=== PATIENT | female | born 1990 | race Caucasian/White ===

== ENCOUNTER 2019-07-17 00:48 | Inpatient (IN) ==
[2019-07-17 01:25] LABS: Apearance,Urine CLEAR (Clear); Bacteria,Urine Moderate /HPF (Few); Bilirubin,Urine Negative (Negative); Blood, Urine Moderate mg/dL (Negative); Glucose,Urine (UA) Negative (Negative); Ketones,Urine 5 mg/dL (Negative); Mucus,Urine Occasional /LPF (Occasional); Nitrite,Urine Negative (Negative); Protein,Urine Negative; RBC,Urine 3 /HPF (0-4); Squamous Epithelial Cell,Urine Occasional /HPF (0-10); Urine Color Yellow (Yellow); Urine Specific Gravity 1.011 (1.001-1.035); Urine Urobilinogen < 2.0 EU/DL (0.2-1.0); WBC,Urine 5 /HPF (0-6)
[2019-07-17] MEDS ORDERED: ONDANSETRON 4 MG/2 ML VIAL IV ONE (01:47)
[2019-07-17] MEDS ORDERED: MEPERIDINE 50 MG/1 ML VIAL IV ONE (01:47)
[2019-07-17] MEDS ORDERED: LACTATED RINGERS 1,000 ML IV ONE (01:47)
[2019-07-17] MEDS ORDERED: CITRIC ACID/SODIUM CITRATE 30 ML UDCUP PO PRN (03:45)
[2019-07-17] MEDS ORDERED: CLINDAMYCIN INJ 900 MG in PREMIX 1 EACH IV PRN (03:45)
[2019-07-17] MEDS ORDERED: TERBUTALINE 1 MG/1 ML VIAL SUBCUT ONE (03:45)
[2019-07-17] MEDS ORDERED: FAMOTIDINE 20 MG/2 ML VIAL IV PRN (03:45)
[2019-07-17] MEDS ORDERED: LACTATED RINGERS 1,000 ML IV SCH ×2 (04:00→11:30)
[2019-07-17 04:36] LABS: Basophils # 0.1 10*3/uL (0.0-0.2); Basophils % 0.5 % (0.0-0.8); Eosinophils % 0.2 % (0.00-10.9); Hematocrit 36.2 VOL% (35.7-47.0); Hemoglobin 11.6 GM/DL (12.0-16.0); Immature Granulocytes % 4.4 %; Immature Granulocytes Absolute 0.58 #; Lymphocytes # 1.9 10*3/uL (1.4-4.0); Lymphocytes % 14.5 % (21.3-54.2); Mean Corpuscular Volume 95.3 FL (87-102); Mean Platelet Volume 9.5 FL (9.6-12.0); Monocytes % 7.8 % (1.7-12.7); Neutrophils % 72.6 % (38.7-73.9); Platelet Count 157 T/CUMM (130-400); White Blood Count 13.2 T/CUMM (4-12)
[2019-07-17 06:11] LABS: Band Neutrophils 4 % (0-10); Lymphocytes 19 % (20-55); Segmented Neutrophils 66 % (50-85); Total Cells Counted 100
[2019-07-17 06:12] LABS: Anisocytosis 1+; Platelet Estimate Normal; Tear Drop Cells Few
[2019-07-17] MEDS ORDERED: ONDANSETRON 4 MG/2 ML VIAL IV PRN ×2 (07:41→11:24)
[2019-07-17] MEDS ORDERED: BUPIVACAINE SPINAL 0.75% 2 ML AMP SPINAL ONE (08:39)
[2019-07-17] MEDS ORDERED: BUPIVACAINE 0.5% 50 ML VIAL ONE (08:39)
[2019-07-17] MEDS ORDERED: OXYTOCIN/LR 30 UNIT/1,000 ML BAG IV ONE (08:55)
[2019-07-17] MEDS ORDERED: OXYTOCIN 10 UNIT/ML VIAL IM ONE (08:55)
[2019-07-17] MEDS ORDERED: METHYLERGONOVINE 0.2 MG/1 ML AMP ONE (09:02)
[2019-07-17] MEDS ORDERED: IBUPROFEN 800 MG TABLET PO PRN (11:24)
[2019-07-17] MEDS ORDERED: RHO(D) IMMUNE GLOBULIN 300 MCG SYRINGE IM ONE (11:24)
[2019-07-17] MEDS ORDERED: OXYTOCIN/LR 20 UNIT/1,000 ML BAG IV ONE (11:24)
[2019-07-17] MEDS ORDERED: ACETAMINOPHEN 325 MG TABLET PO PRN (11:24)
[2019-07-17] MEDS ORDERED: SIMETHICONE CHEW 80 MG TABLET PO PRN (11:24)
[2019-07-17] MEDS ORDERED: ONDANSETRON 4 MG/2 ML VIAL ONE (11:41)
[2019-07-17] MEDS ORDERED: PHENYLEPHRINE 1 MG/10 ML SYRINGE IV ONE (11:42)
[2019-07-17 11:48] LABS: Apearance,Urine CLEAR (Clear); Bilirubin,Urine Negative (Negative); Blood, Urine Negative (Negative); Glucose,Urine (UA) Negative (Negative); Ketones,Urine 80 mg/dL (Negative); Mucus,Urine Few /LPF (Occasional); Nitrite,Urine Negative (Negative); Protein,Urine Negative; RBC,Urine 2 /HPF (0-4); Squamous Epithelial Cell,Urine Occasional /HPF (0-10); Urine Color Yellow (Yellow); Urine Specific Gravity 1.018 (1.001-1.035); Urine Urobilinogen < 2.0 EU/DL (0.2-1.0); WBC,Urine 1 /HPF (0-6)
[2019-07-17] MEDS ORDERED: MORPHINE 10 MG/10 ML VIAL ONE (11:50)
[2019-07-17] MEDS ORDERED: ceFAZolin 1,000 MG in SYRINGE 1 EACH IV SCH (12:00)
[2019-07-17] MEDS: CLINDAMYCIN INJ 900 MG in PREMIX 1 EACH IV SCH (18:00)
[2019-07-17 19:07] LABS: Basophils % 0.3 % (0.0-0.8); Hematocrit 30.8 VOL% (35.7-47.0); Hemoglobin 9.9 GM/DL (12.0-16.0); Immature Granulocytes % 4.4 %; Immature Granulocytes Absolute 0.64 #; Lymphocytes % 6.7 % (21.3-54.2); Mean Corpuscular HGB Conc 32.1 GM/DL (32-36); Mean Corpuscular Volume 93.3 FL (87-102); Mean Platelet Volume 9.6 FL (9.6-12.0); Monocytes % 7.1 % (1.7-12.7); Neutrophils % 81.5 % (38.7-73.9); Platelet Count 139 T/CUMM (130-400); White Blood Count 14.4 T/CUMM (4-12)
[2019-07-17] MEDS: DOCUSATE SODIUM 100 MG CAPSULE PO SCH (20:04)
[2019-07-17 21:45] LABS: Band Neutrophils 4 % (0-10); Lymphocytes 7 % (20-55); Platelet Estimate Normal; Segmented Neutrophils 81 % (50-85); Total Cells Counted 100
[2019-07-17 21:46] LABS: Macrocytosis Slight
[2019-07-18] MEDS: IBUPROFEN 800 MG TABLET PO PRN ×4 (01:08→18:13)
[2019-07-18] MEDS: CLINDAMYCIN INJ 900 MG in PREMIX 1 EACH IV SCH (02:12)
[2019-07-18 07:02] LABS: Basophils % 0.3 % (0.0-0.8); Eosinophils % 0.2 % (0.00-10.9); Hematocrit 28.9 VOL% (35.7-47.0); Immature Granulocytes % 5.2 %; Immature Granulocytes Absolute 0.58 #; Lymphocytes # 1.9 10*3/uL (1.4-4.0); Lymphocytes % 16.7 % (21.3-54.2); Mean Corpuscular HGB Conc 31.1 GM/DL (32-36); Mean Corpuscular Volume 95.7 FL (87-102); Mean Platelet Volume 9.4 FL (9.6-12.0); NRBC # 0.02 10*3/uL; Neutrophils % 66.6 % (38.7-73.9); Platelet Count 134 T/CUMM (130-400); Red Blood Count 3.02 MC/CUMM (3.8-5.5); Red Cell Distribution Width 14.2 % (9.3-17.3); White Blood Count 11.1 T/CUMM (4-12)
[2019-07-18 07:34] LABS: Band Neutrophils 1 % (0-10); Lymphocytes 11 % (20-55); Platelet Estimate Normal; Segmented Neutrophils 82 % (50-85); Total Cells Counted 100
[2019-07-18 07:35] LABS: Microcytosis Slight; Polychromasia Slight; Tear Drop Cells Slight
[2019-07-18] MEDS: METOCLOPRAMIDE 10 MG TABLET PO SCH ×2 (09:00→16:10)
[2019-07-18] MEDS: MAGNESIUM HYDROXIDE SUSP 30 ML UDCUP PO PRN ×2 (09:00→20:20)
[2019-07-18] MEDS: MULTIVITAMIN (PRENATAL) TABLET PO SCH (09:00)
[2019-07-18] MEDS: DOCUSATE SODIUM 100 MG CAPSULE PO SCH ×2 (09:00→20:20)
[2019-07-18] MEDS ORDERED: RHO(D) IMMUNE GLOBULIN 300 MCG SYRINGE IM ONE (14:30)
[2019-07-19] MEDS: METOCLOPRAMIDE 10 MG TABLET PO SCH ×2 (00:57→08:03)
[2019-07-19] MEDS: IBUPROFEN 800 MG TABLET PO PRN ×2 (00:58→06:20)
[2019-07-19 07:56] VITALS: BP 98/49
[2019-07-19] MEDS: MAGNESIUM HYDROXIDE SUSP 30 ML UDCUP PO PRN (08:03)
[2019-07-19] MEDS: MULTIVITAMIN (PRENATAL) TABLET PO SCH (08:03)
[2019-07-19] MEDS: DOCUSATE SODIUM 100 MG CAPSULE PO SCH (08:03)
== END 2019-07-19 12:30 | disposition home or self-care (01) | DRG 788 ==
LOC: N.LDOUT 00:48 → N.LD 00:51 → N.OB 15:30
PROVIDERS: ADMIT Obstetrics & Gynecology; ATTEND Obstetrics & Gynecology
PROC: LDCSECT (ICD-10-PCS; 2019-07-17 07:55)